=== PATIENT | male | born 1960 | race Caucasian/White ===

== ENCOUNTER 2016-04-18 16:11 | Emergency (ER) | payer OTHER ==
[2016-04-18] MEDS ORDERED: NS 0.9% 1000 ML* 1,000 ML IV SCH (16:30)
[2016-04-18 16:36] LABS: Hematocrit 43 % (42-52); Hemoglobin 14.4 g/dl (14.0-18.0); Mean Corpuscular HGB Conc 34 g/dl (31-36); Mean Corpuscular Hemoglobin 31 pg (27-31); Mean Corpuscular Volume 92 fL (80-94); Mean Platelet Volume 9 um3 (7.4-10.4); Red Blood Count 4.67 10^6/ul (4.0-5.4); Red Cell Distribution Width 14 % (10.5-15)
--- NOTE | 2016-04-18 16:43 | RAD ---
INDICATION: Right-sided weakness COMPARISON: None TECHNIQUE: An AP portable view obtained at 1637 hours is submitted. FINDINGS: Bones/Soft Tissues: There are no acute bony findings. Cardiomediastinal: The cardiomediastinal silhouette is normal. Lungs: There are no infiltrates. Pleura: There are no pleural effusions. Other: None IMPRESSION: NO ACTIVE DISEASE.
--- NOTE | 2016-04-18 16:44 | RAD ---
INDICATION: Weakness COMPARISON: CT brain 03/08/2014 TECHNIQUE: Noncontrast axial source images were acquired from the skull base to the vertex. FINDINGS: Ventricles/sulci: The ventricles and cisterns are normal in size and configuration for age. Brain parenchyma: There is no focal parenchymal finding, evidence of intracranial mass, or intracranial mass effect. Intracranial hemorrhage:None. Extra-axial spaces: There are no abnormal extra axial fluid collections or evidence of extra-axial mass. Calvarium: There is no calvarial fracture or other calvarial abnormality. Scalp: There is no evidence of scalp or extracalvarial soft tissue abnormality. Paranasal sinuses/mastoid: The paranasal sinuses and mastoid air cells are clear. Other: None. IMPRESSION: NEGATIVE EXAMINATION
[2016-04-18 17:00] LABS: Albumin 4.3 g/dL (3.2-5.2); BUN/Creatinine Ratio 17.9 (8-20); C Reactive Protein 2.98 mg/L (< 5.00); Calcium 9.5 mg/dL (8.6-10.3); EGFR Non-African American 60.7 (>60); Globulin 2.4 g/dL (2-4); Magnesium 2.1 mg/dL (1.9-2.7); Total Bilirubin 0.6 mg/dL (0.2-1.0); Total Protein 6.7 g/dL (6.4-8.9)
[2016-04-18] MEDS ORDERED: Iohexol 350* (CONTRAST) 500 ML MDV IV ONE (17:26)
--- NOTE | 2016-04-18 17:29 | PN ---
Progress Note - Progress Note Note: Hospitalist addendum:spoke with Dr. Raines re: pt most likely will need admission, but will await CTA results prior to admission in case pt needed a a transfer to a tertiary care center.
[2016-04-18 17:38] LABS: TSH (Thyroid Stimulating Horm) 2.08 mcIU/mL (0.34-5.60)
--- NOTE | 2016-04-18 18:10 | RAD ---
INDICATION: Right arm and leg weakness. Slurred speech. COMPARISON: CT brain 04/18/2016 TECHNIQUE: Axial source images were acquired with coronal and sagittal reconstructions. CT angiographic technique was utilized with injection of 80 mL Omnipaque 350. FINDINGS: Aortic arch: There are no CT angiogram abnormalities of the arch or the great vessels arising from the arch. Right carotid: The internal carotid artery, carotid bifurcation, extracranial portions of the internal carotid artery, carotid artery at the skull base, carotid siphon, and carotid termination appear widely patent. Left carotid:The internal carotid artery, carotid bifurcation, extracranial portions of the internal carotid artery, carotid artery at the skull base, carotid siphon, and carotid termination appear widely patent. Right middle and anterior cerebral arteries: There are no CT angiographic abnormalities of the middle or anterior cerebral arteries. Left middle and anterior cerebral arteries: There are no CT angiographic abnormalities of the middle or anterior cerebral arteries Right vertebral: The CT angiographic appearance of the vertebral artery is normal. Left vertebral: The CT angiographic appearance of the vertebral artery is normal. Basilar artery: The basilar artery and basilar tip appear normal. Posterior cerebral arteries: The distal distribution of the right and left posterior cerebral arteries is normal. [place] of [place]: The CT angiographic appearance of the [place] of [place] is normal. Source images show no evidence of mass or adenopathy within the neck. There are no focal parenchymal abnormalities or abnormal areas of enhancement. IMPRESSION: NO SIGNIFICANT CT RADIOGRAPHIC ABNORMALITIES. NO SIGNIFICANT STENOSIS, ANEURYSM, OR BRANCH OCCLUSION. CPT II Codes: 3100F [facility]
--- NOTE | 2016-04-18 18:37 | CONSULT ---
Consult Consult: 55 yo RHM w/ HTN, HL, p/w an episode of blacking out while standing at work on Friday. He had no specific prodrome, but found himself staring off at a different part of his desk when he came to; his boss told him he did not look right, and his told him he looked pale when he got home. He also noted dizziness and unsteadiness at times. He felt tired and stayed home and slept most of the day. He and his family think his voice is different, but when asked to clarify suggest it is hoarse. He has no bulbar, language, focal sensorimotor or gait issues. When asked re visual issues he suggests occasional variegated color floaters, not in any specific part of his visual field. He denies antecedent illness but his thinks he may have not eaten or had much fluid estrada yesterday. He carries a diagnosis of TIAs, consisting of 2 episodes of headache, dizziness and disorientation, without any focal complaints. He had an episode in ? 11/04 ( worked up in [facility]; unsure of details but had some type of brain and cardiac imaging. He was in the [facility] ED in 03/06 for dizziness and headache. He thinks he was put on Plavix after these. He suggests chronic imbalance and dizziness that he labels TIA, but denies falls or use of gait assist devices; he works a physically demanding job. Allergies/Meds: NKDA (atenolol a/w dizziness); on coreg, Lipitor 80mg, plavix PMH : HL, HTN, CTS releases, bunionectomy FH: early onset CAD in parents and one sibling; children grown and healthy SH: goes to OR clinic; ex [employer]; works in [employer]; remote tobacco; no etoh or drugs; accompanied in ED by mult family members, incl , son, brother in law ROS: 10 point review negative save as per hpi. general Examination: no apparent distress, no edema, male of stated age; BP 120/ 60 on monitor Neurologic Examination Mental Status: alert, oriented, fund of knowledge normal, concentration and recent and remote memory observationally intact, fluent speech, reactive affect , no neglect. Cranial Nerves: II, III, IV, V, , VII, IX, X, XI and XII intact. Funduscopy deferred. Motor: normal bulk and tone. Power testing is 5/5. He has intermittent subtle right drift without pronation; there is no tremor. Sensory: vibration and touch are intact Reflexes: 2 all extremities. Plantar responses are equivocal to flexor Coordination: finger to nose is accurate but embellished at times on the right Gait: normal casual gait; steady Serologies: LFTs, trop, BNP, CRP, coags, TSH are all normal or negative; bun/cr 22/1.2 (was 0.8 in 03/06), WBC 12 Imaging: - Head CT reviewed and negative (prior 03/06 negative as well) - CTA head and neck reviewed and negative (obtained at [facility] medical team) - Cxr negative; 05/08 cervical spine xray djd Impression: 55 year old presenting with a panoply of poorly localizing symptoms, including floaters, hoarse voice, malaise, a ? (pre) syncopal episode, subjective unsteadiness. He carries a diagnosis of TIA for several remote episodes that sound frankly non focal. His neuro exam is normal save for some poorly reproducible and embellished appearing right hand findings; his [employer] parenchymal and vascular imaging is normal. His labs are notable for mild dehydration and leukocytosis, ie my suspicion would be more for a viral ailment and (pre) syncope than for a [employer] vascular event. He does not require any further neuro workup.
[2016-04-18] MEDS ORDERED: Acetaminophen TAB* 325 MG PO PRN (18:42)
[2016-04-18] MEDS ORDERED: ALPRAZolam TAB* 0.25 MG PO PRN (18:47)
--- NOTE | 2016-04-18 19:06 | ED ---
Sultana Morris Janilya, scribed for Davie Chao MD on 04/18/16 at 1627 . Neurological HPI - HPI Summary HPI Summary: A 55 y/o male [facility] for a gradual onset of constant Sx that occurred 2 days ago and were similar to previous TIA. Pt states he had slurred speech, right-sided weakness, off-balance sensation, dizziness, ROLDAN in frontal and parietal region. His Sx have since subsided, and pt can ambulate. 9 days ago, pt also passed out. Pt is on bloodthinner Plavix. - History of Current Complaint Stated Complaint: NEURO EVAL Hx Obtained From: Patient Onset/Duration: Gradual Onset, Started days ago, Still Present Timing: Constant Onset Severity: Moderate Current Severity: Moderate Seizure Severity: Moderate Headache Location: Frontal, Parietal (Right), Parietal (Left) Character: Weak, Dizzy Aggravating: Nothing Alleviating: Nothing - Allergy/Home Medications Allergies/Adverse Reactions: Allergies Allergy/AdvReac Type Severity Reaction Status Date / Time Atenolol AdvReac Mild Dizziness Verified 03/08/14 13:17 Home Medications: Home Medications ALPRAZolam TAB* [Xanax TAB*] 0.25 mg PO BID PRN 04/18/16 [History Confirmed ] Carvedilol TAB* [Coreg TAB*] 3.125 mg PO BID 04/18/16 [History Confirmed ] Cholecalciferol TAB* [Vitamin D TAB*] 2,000 units PO DAILY 04/18/16 [History Confirmed 04/18/16] Citalopram TAB* [CeleXA TAB*] 20 mg PO DAILY 04/18/16 [History Confirmed ] Cyclobenzaprine (NF) 2.5 mg PO BEDTIME 04/18/16 [History Confirmed 04/18/16] Gabapentin CAP(*) [Neurontin 100 mg CAP(*)] 100 mg PO TID WITH MEALS 04/18/16 [ History Confirmed 04/18/16] Lisinopril TAB* [Prinivil TAB*] 10 mg PO BID 04/18/16 [History Confirmed ] Nitroglycerin TAB 0.4 MG* 0.4 mg SL Q5M PRN 04/18/16 [History Confirmed 04/18/16 ] Pantoprazole TAB (NF) [Protonix TAB (NF)] 40 mg PO QAM 04/18/16 [History Confirmed 04/18/16] Rosuvastatin (NF) [Crestor (NF)] 20 mg PO DAILY 04/18/16 [History Confirmed ] PMH/Surg Hx/FS Hx/Imm Hx - Surgical History Surgery Procedure, Year, and Place: CAD. TIA - Family History Known Family History: Positive: Cardiac Disease - parents and sister, Hypertension, Diabetes - Social History Alcohol Use: Daily Alcohol Amount: 1-2 beer Substance Use Type: Reports: None Smoking Status (MU): Former Smoker Review of Systems Neurological: Other - dizziness, off-balance sensation Positive: Headache, Weakness - right-sided, Syncope, Slurred Speech All Other Systems Reviewed And Are Negative: Yes Physical Exam Triage Information Reviewed: Yes Vital Signs On Initial Exam: Initial Vitals BP 109/63 04/18/16 16:23 Vital Signs Reviewed: Yes Appearance: Positive: Well-Appearing, No Pain Distress Skin: Positive: Warm, Skin Color Reflects Adequate Perfusion, Dry Head/Face: Positive: Normal Head/Face Inspection Eyes: Positive: EOMI, ZAIRA ENT: Positive: Normal ENT inspection Neck: Positive: Supple, Nontender Respiratory/Lung Sounds: Positive: Clear to Auscultation, Breath Sounds Present Cardiovascular: Positive: RRR Abdomen Description: Positive: Nontender, Soft Bowel Sounds: Positive: Present Musculoskeletal: Positive: Other - mild weakness of right arm and right leg. Negative: Normal, Strength/ROM Intact Neurological: Positive: Normal, Sensory/Motor Intact, Alert, Oriented to Person Place, Time, Slurred Speech - slight. Negative: Facial Droop Psychiatric: Positive: Affect/Mood Appropriate Diagnostics - Vital Signs Vital Signs Temp Pulse Resp BP Pulse Ox 04/18/16 16:42 112/56 04/18/16 16:34 70 20 92 04/18/16 16:31 98.6 F 70 18 112/56 94 04/18/16 16:30 74 22 115/60 92 04/18/16 16:24 71 21 93 04/18/16 16:23 109/63 - Laboratory Lab Results: Lab Results 04/18/16 04/18/16 04/18/16 Range/Units 16:25 16:25 16:25 WBC 12.0 H (3.5-10.8) 10^3/ul RBC 4.67 (4.0-5.4) 10^6/ul Hgb 14.4 (14.0-18.0) g/dl Hct 43 (42-52) % MCV 92 (80-94) fL MCH 31 (27-31) pg MCHC 34 (31-36) g/dl RDW 14 (10.5-15) % Plt Count 207 (150-450) 10^3/ul MPV 9 (7.4-10.4) um3 Neut % (Auto) 67.7 (38-83) % Lymph % (Auto) 22.2 L (25-47) % Wells % (Auto) 7.1 (1-9) % Eos % (Auto) 2.3 (0-6) % Baso % (Auto) 0.7 (0-2) % Absolute Neuts (auto) 8.1 H (1.5-7.7) 10^3/ul Absolute Lymphs (auto) 2.7 (1.0-4.8) 10^3/ul Absolute Monos (auto) 0.9 H (0-0.8) 10^3/ul Absolute Eos (auto) 0.3 (0-0.6) 10^3/ul Absolute Basos (auto) 0.1 (0-0.2) 10^3/ul Absolute Nucleated RBC 0 10^3/ul Nucleated RBC % 0 INR (Anticoag Therapy) 0.95 (0.89-1.11) APTT 31.1 (26.0-36.3) seconds Sodium 136 (133-145) mmol/L Potassium 4.0 (3.5-5.0) mmol/L Chloride 105 (101-111) mmol/L Carbon Dioxide 22 (22-32) mmol/L Anion Gap 9 (2-11) mmol/L BUN 22 (6-24) mg/dL Creatinine 1.23 H (0.67-1.17) mg/dL Est GFR ( Amer) 78.0 (>60) Est GFR (Non-Af Amer) 60.7 (>60) BUN/Creatinine Ratio 17.9 (8-20) Glucose 83 (70-100) mg/dL Calcium 9.5 (8.6-10.3) mg/dL Magnesium 2.1 (1.9-2.7) mg/dL Total Bilirubin 0.60 (0.2-1.0) mg/dL AST 18 (13-39) U/L ALT 14 (7-52) U/L Alkaline Phosphatase 78 (34-104) U/L Troponin I 0.00 (<0.04) ng/mL C-Reactive Protein 2.98 (< 5.00) mg/L B-Natriuretic Peptide ( - 100) pg/mL Total Protein 6.7 (6.4-8.9) g/dL Albumin 4.3 (3.2-5.2) g/dL Globulin 2.4 (2-4) g/dL Albumin/Globulin Ratio 1.8 (1-3) TSH 2.08 (0.34-5.60) mcIU/mL 04/18/16 Range/Units 16:25 WBC (3.5-10.8) 10^3/ul RBC (4.0-5.4) 10^6/ul Hgb (14.0-18.0) g/dl Hct (42-52) % MCV (80-94) fL MCH (27-31) pg MCHC (31-36) g/dl RDW (10.5-15) % Plt Count (150-450) 10^3/ul MPV (7.4-10.4) um3 Neut % (Auto) (38-83) % Lymph % (Auto) (25-47) % Wells % (Auto) (1-9) % Eos % (Auto) (0-6) % Baso % (Auto) (0-2) % Absolute Neuts (auto) (1.5-7.7) 10^3/ul Absolute Lymphs (auto) (1.0-4.8) 10^3/ul Absolute Monos (auto) (0-0.8) 10^3/ul Absolute Eos (auto) (0-0.6) 10^3/ul Absolute Basos (auto) (0-0.2) 10^3/ul Absolute Nucleated RBC 10^3/ul Nucleated RBC % INR (Anticoag Therapy) (0.89-1.11) APTT (26.0-36.3) seconds Sodium (133-145) mmol/L Potassium (3.5-5.0) mmol/L Chloride (101-111) mmol/L Carbon Dioxide (22-32) mmol/L Anion Gap (2-11) mmol/L BUN (6-24) mg/dL Creatinine (0.67-1.17) mg/dL Est GFR ( Amer) (>60) Est GFR (Non-Af Amer) (>60) BUN/Creatinine Ratio (8-20) Glucose (70-100) mg/dL Calcium (8.6-10.3) mg/dL Magnesium (1.9-2.7) mg/dL Total Bilirubin (0.2-1.0) mg/dL AST (13-39) U/L ALT (7-52) U/L Alkaline Phosphatase (34-104) U/L Troponin I (<0.04) ng/mL C-Reactive Protein (< 5.00) mg/L B-Natriuretic Peptide 22 ( - 100) pg/mL Total Protein (6.4-8.9) g/dL Albumin (3.2-5.2) g/dL Globulin (2-4) g/dL Albumin/Globulin Ratio (1-3) TSH (0.34-5.60) mcIU/mL Result Diagrams: 04/18/16 16:25 04/18/16 16:25 Lab Statement: Any lab studies that have been ordered have been reviewed, and results considered in the medical decision making process. - Radiology CXR Xray Interpretation: No Acute Changes - IMPRESSION: No active disease Radiology Interpretation Completed By: Radiologist - CT brain CT Interpretation: No Acute Changes - IMPRESSION: Negative examination CT Interpretation Completed By: Radiologist head CTA CT Interpretation: No Acute Changes - IMPRESSION: NO SIGNIFICANT CT RADIOGRAPHIC ABNORMALITIES. NO SIGNIFICANT STENOSIS, ANEURYSM, OR BRANCH OCCLUSION. CT Interpretation Completed By: Radiologist Course/Dx - Course Assessment/Plan: DR LUCIA SAW PATIENT IN ED. SEE HIS DICTATED CONSULTATION. IN FURTHER DISCUSSION WITH THE PATIENT, HIS FAMILY AND THE HOSPITALIST, THE PATIENT WOULD LIKE TO GO TO THE [facility] IN [place]. HE WILL BE DISCHARGE FROM THE ED WITH HIS ED RECORDS IN STABLE CONDITION. - Diagnoses Provider Diagnoses: Weakness - Physician Notifications Discussed Care of Patient With: Dr. Zamora (hospitalist) at 1702: discussed pt care. Dr. Lucia (neurologist) at 1715: agreed to come and evaluate the pt. Discharge - Discharge Plan Condition: Stable Disposition: HOME Patient Education Materials: Weakness (ED) Referrals: Don Holguin MD [Primary Care Provider] - Additional Instructions: FOLLOW UP WITH YOUR DOCTOR. RETURN TO THE EMERGENCY DEPARTMENT FOR ANY WORSENING OF YOUR CONDITION OR QUESTIONS OR CONCERNS. The documentation as recorded by the Sultana johnston Janilya accurately reflects the service I personally performed and the decisions made by me, Davie Chao MD.
[2016-04-18 19:22] VITALS: BP 117/74
[2016-04-18] MEDS ORDERED: Cyclobenzaprine TAB* 10 MG PO SCH (21:00)
[2016-04-18] MEDS ORDERED: Carvedilol TAB* 3.125 MG PO SCH (21:00)
[2016-04-19] MEDS ORDERED: Gabapentin CAP(*) 100 MG PO SCH (08:00)
[2016-04-19] MEDS ORDERED: Atorvastatin* 40 MG TAB PO SCH (09:00)
[2016-04-19] MEDS ORDERED: Citalopram TAB* 20 MG PO SCH (09:00)
== END 2016-04-18 19:24 | disposition home or self-care (01) ==
LOC: ED 16:11
DX: R53.1 Weakness (principal); Z86.73 Personal history of transient ischemic attack (TIA), and cerebral infarction without residual deficits; Z87.891 Personal history of nicotine dependence; Z79.02 Long term (current) use of antithrombotics/antiplatelets; I10 Essential (primary) hypertension
CPT/HCPCS: 36415; 70450; 70496; 70498; 71010; 80053; 83735; 83880; 84443; 84484; 85025; 85610; 85730; 86140; 99284; Q9967

== ENCOUNTER 2018-08-11 13:00 | Emergency (ER) | payer OTHER ==
--- NOTE | 2018-08-11 13:13 | ED ---
Neurological HPI - HPI Summary HPI Summary: This patient is a 57 year old female presenting to [facility] with a chief complaint of - History of Current Complaint Stated Complaint: TIA PER EMS Time Seen by Provider: 08/11/18 13:04 - Allergy/Home Medications Allergies/Adverse Reactions: Allergies Allergy/AdvReac Type Severity Reaction Status Date / Time MS Atenolol [Atenolol] AdvReac Mild Dizziness Verified 03/08/14 13:17 PMH/Surg Hx/FS Hx/Imm Hx Cardiovascular History: Reports: Other Cardiovascular Problems/Disorders - CAD - Surgical History Surgery Procedure, Year, and Place: CAD. TIA - Family History Known Family History: Positive: Cardiac Disease - parents and sister, Hypertension, Diabetes - Social History Alcohol Use: Daily Alcohol Amount: 1-2 beer Substance Use Type: Reports: None Substance Use Comment - Amount & Last Used: last used 2 days ago Smoking Status (MU): Former Smoker Discharge - Discharge Plan Referrals: Don Holguin MD [Primary Care Provider] - - Attestation Statements Document Initiated by Scribe: Yes
[2018-08-11 13:22] LABS: ABS Basophils 0.1 10^3/ul (0-0.2); ABS Eosinophils 0.3 10^3/ul (0-0.6); ABS Lymphocytes 1.9 10^3/ul (1.0-4.8); ABS Monocytes 0.5 10^3/ul (0-0.8); ABS Neutrophils 9.1 10^3/ul (1.5-7.7); Eosinophil % 2.5 %; Hematocrit 42 % (42-52); Hemoglobin 14.1 g/dL (14.0-18.0); Lymphocyte % 15.8 %; Mean Corpuscular HGB Conc 34 g/dL (31-36); Mean Corpuscular Hemoglobin 30 pg (27-31); Mean Corpuscular Volume 90 fL (80-94); Mean Platelet Volume 8.7 fL (7.4-10.4); Platelet Count 231 10^3/uL (150-450); Red Blood Count 4.64 10^6 /uL (4.18-5.48); Red Cell Distribution Width 13 % (10.5-15); White Blood Count 11.9 10^3/uL (3.5-10.8)
[2018-08-11 13:31] LABS: INR 0.94 (0.82-1.09)
--- NOTE | 2018-08-11 14:00 | ED ---
Dizziness - HPI Summary HPI Summary: This patient is a 57 year old M brought in by EMS from [facility] facility presenting to [facility] with a chief complaint of dizziness since 0930 this morning, 08/09/20. Per EMS the patient was turning his head to the right hand side and felt an immediate dizziness spell. The patient had L sided chest pain and was diaphoretic during the work day after the episode occurred. The patient also reported being nauseas and vomiting donuts up after work. The patient then went to the [facility] facility who thought he may have had a possible TIA or acute coronary syndrome. The patient was then directed to [facility] for further evaluation. The patient reports dizziness and chest pain with an associated stabbing pain upon arrival to the ED. The patient also denies any syncopal episode. The patient has a Hx of HTN and HLD per family. - History Of Current Complaint Chief Complaint: EDDizziness Stated Complaint: TIA PER EMS Time Seen by Provider: 08/11/18 13:04 Hx Obtained From: Patient, EMS Onset/Duration: Still Present Timing: Hours - sine 92908/11/18 Severity Initially: Severe Severity Currently: Moderate Character: Dizzy Aggravating Factor(s): Position Change - Rapid movement of the patient's head initiated the episode Alleviating Factor(s): Nothing Associated Signs And Symptoms: Positive: Nausea, Vomiting, Diaphoresis, Chest Pain - L sided, Other: - Negative: syncopl episode - Allergies/Home Medications Allergies/Adverse Reactions: Allergies Allergy/AdvReac Type Severity Reaction Status Date / Time atenolol Allergy Dizziness Verified 08/11/18 14:39 Home Medications: Home Medications Clopidogrel TAB* [Plavix TAB*] 75 mg PO DAILY 08/11/18 [History Confirmed ] Cyclobenzaprine TAB* [Flexeril 10 MG TAB*] 10 mg PO TID PRN 08/11/18 [History Confirmed 08/11/18] Gabapentin CAP(*) [Neurontin 100 mg CAP(*)] 200 mg PO BID 08/11/18 [History Confirmed 08/11/18] Sertraline* [Zoloft*] 150 mg PO DAILY 08/11/18 [History Confirmed 08/11/18] PMH/Surg Hx/FS Hx/Imm Hx Previously Healthy: No Endocrine/Hematology History: Denies: Hx Diabetes Cardiovascular History: Reports: Hx Hypercholesterolemia, Hx Hypertension, Other Cardiovascular Problems/Disorders - CAD - Surgical History Surgery Procedure, Year, and Place: CAD. TIA Infectious Disease History: No Infectious Disease History: Denies: Traveled Outside the [place] in Last 30 Days - Family History Known Family History: Positive: Cardiac Disease - parents and sister, Hypertension, Diabetes - Social History Alcohol Use: None Hx Substance Use: No Substance Use Type: Reports: None Substance Use Comment - Amount & Last Used: last used 2 days ago Hx Tobacco Use: Yes Smoking Status (MU): Former Smoker Review of Systems Positive: Skin Diaphoresis, Other - Dizziness Positive: Chest Pain - L sided Positive: Vomiting, Nausea Negative: Syncope All Other Systems Reviewed And Are Negative: Yes Physical Exam - Summary Physical Exam Summary: VITAL SIGNS: Reviewed. GENERAL: Patient is a well-developed and nourished MALE who is lying comfortable in the stretcher. Patient is not in any acute respiratory distress. HEAD AND FACE: No signs of trauma. No ecchymosis, hematomas or skull depressions. No sinus tenderness. EYES: PERRLA, EOMI x 2, No injected conjunctiva, no nystagmus. EARS: Hearing grossly intact. Ear canals and tympanic membranes are within normal limits. MOUTH: Oropharynx within normal limits. NECK: Supple, trachea is midline, no adenopathy, no JVD, no carotid bruit, no c- spine tenderness, neck with full ROM. CHEST: Symmetric, no tenderness at palpation LUNGS: Clear to auscultation bilaterally. No wheezing or crackles. CVS: Regular rate and rhythm, S1 and S2 present, no murmurs or gallops appreciated. ABDOMEN: Soft, non-tender. No signs of distention. No rebound no guarding, and no masses palpated. Bowel sounds are normal. EXTREMITIES: FROM in all major joints, no edema, no cyanosis or clubbing. NEURO: Alert and oriented x 3. No acute neurological deficits. Speech is normal and follows commands. SKIN: Dry and warm GCS: 15 NIH: 0 Triage Information Reviewed: Yes Vital Signs On Initial Exam: Initial Vitals Temp Pulse Resp BP Pulse Ox 98 F 72 18 132/80 93 08/11/18 13:07 08/11/18 13:07 08/11/18 13:07 08/11/18 13:07 08/11/18 13:07 Vital Signs Reviewed: Yes Diagnostics - Vital Signs Vital Signs Temp Pulse Resp BP Pulse Ox 08/11/18 13:09 98 08/11/18 13:07 98 F 72 18 132/80 93 - Laboratory Lab Results: Lab Results 08/11/18 08/11/18 08/11/18 Range/Units 13:12 13:12 13:12 WBC 11.9 H (3.5-10.8) 10^3/uL RBC 4.64 (4.18-5.48) 10^6 /uL Hgb 14.1 (14.0-18.0) g/dL Hct 42 (42-52) % MCV 90 (80-94) fL MCH 30 (27-31) pg MCHC 34 (31-36) g/dL RDW 13 (10.5-15) % Plt Count 231 (150-450) 10^3/uL MPV 8.7 (7.4-10.4) fL Neut % (Auto) 77.0 % Lymph % (Auto) 15.8 % [place] % (Auto) 4.2 % Eos % (Auto) 2.5 % Baso % (Auto) 0.5 % Absolute Neuts (auto) 9.1 H (1.5-7.7) 10^3/ul Absolute Lymphs (auto) 1.9 (1.0-4.8) 10^3/ul Absolute Monos (auto) 0.5 (0-0.8) 10^3/ul Absolute Eos (auto) 0.3 (0-0.6) 10^3/ul Absolute Basos (auto) 0.1 (0-0.2) 10^3/ul Absolute Nucleated RBC 0.0 10^3/ul Nucleated RBC % 0.0 INR (Anticoag Therapy) 0.94 (0.82-1.09) Sodium Pending Potassium Pending Chloride Pending Carbon Dioxide Pending Anion Gap Pending BUN Pending Creatinine Pending Est GFR ( Amer) Pending Est GFR (Non-Af Amer) Pending BUN/Creatinine Ratio Pending Glucose Pending Lactic Acid (0.5-2.0) mmol/L Calcium Pending Total Bilirubin Pending AST Pending ALT Pending Alkaline Phosphatase Pending Troponin I 0.00 (<0.04) ng/mL Total Protein Pending Albumin Pending Globulin Pending Albumin/Globulin Ratio Pending Triglycerides Pending Cholesterol Pending LDL Cholesterol Pending HDL Cholesterol Pending Serum Alcohol Pending 08/11/18 Range/Units 13:12 WBC (3.5-10.8) 10^3/uL RBC (4.18-5.48) 10^6 /uL Hgb (14.0-18.0) g/dL Hct (42-52) % MCV (80-94) fL MCH (27-31) pg MCHC (31-36) g/dL RDW (10.5-15) % Plt Count (150-450) 10^3/uL MPV (7.4-10.4) fL Neut % (Auto) % Lymph % (Auto) % [place] % (Auto) % Eos % (Auto) % Baso % (Auto) % Absolute Neuts (auto) (1.5-7.7) 10^3/ul Absolute Lymphs (auto) (1.0-4.8) 10^3/ul Absolute Monos (auto) (0-0.8) 10^3/ul Absolute Eos (auto) (0-0.6) 10^3/ul Absolute Basos (auto) (0-0.2) 10^3/ul Absolute Nucleated RBC 10^3/ul Nucleated RBC % INR (Anticoag Therapy) (0.82-1.09) Sodium Potassium Chloride Carbon Dioxide Anion Gap BUN Creatinine Est GFR ( Amer) Est GFR (Non-Af Amer) BUN/Creatinine Ratio Glucose Lactic Acid 1.1 (0.5-2.0) mmol/L Calcium Total Bilirubin AST ALT Alkaline Phosphatase Troponin I (<0.04) ng/mL Total Protein Albumin Globulin Albumin/Globulin Ratio Triglycerides Cholesterol LDL Cholesterol HDL Cholesterol Serum Alcohol Result Diagrams: 08/11/18 13:12 08/11/18 13:12 Lab Statement: Any lab studies that have been ordered have been reviewed, and results considered in the medical decision making process. - Radiology CXR Radiology Interpretation Completed By: Radiologist Summary of Radiographic Findings: No active cardiopulmonary disease is noted. ED Physician has reviewed this report. - CT Brain CT CT Interpretation Completed By: Radiologist Summary of CT Findings: NO EVIDENCE FOR ACUTE INTRACRANIAL ABNORMALITY. ED Physician has reviewed this report. - EKG 1352 Cardiac Rate: NL - 68 BPM EKG Rhythm: Sinus Rhythm ST Segment: Normal Summary of EKG Findings: Normal sinus rhythm at [address] elevation and normal axis. National Institutes Of Health - NIH Scale Level of Consciousness: Alert/Keenly Responsive Ask Patient the Month and His/Her Age: Both Correct Ask Pt to Open/Close Eyes and Fudge Candy Maker/Release Non-Paretic Hand: Both Correctly Best Gaze (Only Horizontal Eye Movement): Normal Visual Field Testing: No Visual Loss Facial Paresis-Pt to Smile & Close Eyes or Grimace Symmetry: Normal/Symmetrical Motor Function - Right Arm: No Drift-Holds 10 Seconds Motor Function - Left Arm: No Drift-Holds 10 Seconds Motor Function - Right Leg: No Drift-Holds 10 Seconds Motor Function - Left Leg: No Drift-Holds 10 Seconds Limb Ataxia-Must be out of Proportion to Weakness Present: Absent Sensory (Use Pinprick to Test Arms/Legs/Trunk/Face): Normal Best Language (Describe Picture, Name Items): No Aphasia Dysarthria (Read Several Words): Normal Extinction and Inattention: No Abnormality Total Score: 0 Re-Evaluation - Re-Evaluation First Eval Re-Evaluation Time: 17:56 Comment: Patient was informed about the discharge plan and is agreeable. Dizzy Course/Dx - Course Assessment/Plan: This patient is a 57-year-old male who presents to the emergency department after he was transferred from the [facility] clinic with a chief complaint of having dizziness and chest pain. The patient has past medical history significant for dyslipidemia, hypertension, inguinal hernia, TIA, cervical radiculopathy, and MRSA. Blood test results without any significant abnormality except for white blood cell count 11.9, glucose 122, urinalysis is negative for UTI. Troponin 0.00 therefore have no suspicion for an acute coronary syndrome. EKG shows a normal sinus rhythm without any ST elevations. Brain CT impression no evidence for acute intracranial abnormality. Chest x- ray impression: No evidence for active cardiopulmonary disease. After 4 hours the second troponin is also 0.00. The patient is asymptomatic at this time. We ambulated the patient and he has a good steady walk. The patient does have any ataxia. Therefore I believe that the patient had an episode of vertigo which he already has resolved. The patient is not symptomatic. At this point we have ruled out an acute coronary syndrome with 2 troponins apart and an EKG and since the patient is symptoms free he will be discharged home with follow- up with primary care physician. Also he is to follow-up with his neurologist for further workup and management. He was recommended to return to the emergency room immediately if he develops any other weakness, dizziness, slurred speech, facial droop or any other symptom. The patient understands and agrees. The family members who are with him also agrees and understands. Patient is hemodynamically stable alert and oriented 3. - Diagnoses Differential Diagnosis/HQI/PQRI: Benign Paroxysmal Positional Vertigo, Coronary Artery Disease, CVA, Dysrhythmia, Hyperventilation, Labyrinthitis, Meniere's Disease, Myocardial Infarction, Transient Ischemic Attack, Vasovagal Reaction Provider Diagnoses: Vertigo, Atypical chest pain Discharge - Sign-Out/Discharge Documenting (check all that apply): Patient Departure - discharge Patient Received Moderate/Deep Sedation with Procedure: No - Discharge Plan Condition: Stable Disposition: HOME Patient Education Materials: Chest Pain (ED), Vertigo (ED) Referrals: Don Holguin MD [Primary Care Provider] - - Billing Disposition and Condition Condition: STABLE Disposition: Home - Attestation Statements Document Initiated by Gloryibe: Yes Documenting Scribe: Kristian Montes Provider For Whom Nandoe is Documenting (Include Credential): Camden Collier MD Scribe Attestation: Kristian Morris, scribed for Camden Collier MD on 08/13/18 at 1146. Scribe Documentation Reviewed: Yes Provider Attestation: The documentation as recorded by the gloryibe, Kristian Montes accurately reflects the service I personally performed and the decisions made by , Camden Collier MD Status of Scribe Document: Viewed
[2018-08-11 14:01] LABS: ALT 18 U/L (7-52); AST 19 U/L (13-39); Albumin 4.5 g/dL (3.2-5.2); Albumin/Globulin Ratio 1.8 (1-3); Alkaline Phosphatase 92 U/L (34-104); Anion Gap 6 mmol/L (2-11); BUN/Creatinine Ratio 20.8 (8-20); Blood Urea Nitrogen 20 mg/dL (6-24); CO2 Carbon Dioxide 25 mmol/L (22-32); Chloride 109 mmol/L (101-111); Cholesterol 172 mg/dL; EGFR Non-African American 80.2 (>60); Globulin 2.5 g/dL (2-4); Glucose 122 mg/dL (70-100); HDL Cholesterol 45.8 mg/dL; LDL Cholesterol 105 mg/dL; Potassium 4.4 mmol/L (3.5-5.0); Sodium 140 mmol/L (135-145); Triglycerides 107 mg/dL
[2018-08-11 14:16] LABS: Urine Appearance Clear; Urine Bacteria Absent (Absent); Urine Bilirubin Negative (Negative); Urine Blood 1+ (Negative); Urine Color Yellow; Urine Glucose Negative (Negative); Urine Ketones Negative (Negative); Urine Nitrite Negative (Negative); Urine Protein Negative (Negative); Urine Red Blood Cell 1+(3-5/hpf) (Absent); Urine Specific Gravity 1.019 (1.010-1.030); Urine Urobilinogen Negative (Negative); Urine White Blood Cell Trace(0-5/hpf) (Absent)
[2018-08-11 14:25] LABS: Alcohol < 10 mg/dL (<10)
[2018-08-11 18:09] VITALS: BP 136/87
== END 2018-08-11 18:09 | disposition home or self-care (01) ==
LOC: ED 13:00
DX: R42 Dizziness and giddiness (principal); R07.89 Other chest pain; R11.2 Nausea with vomiting, unspecified; R61 Generalized hyperhidrosis; Z88.8 Allergy status to other drugs, medicaments and biological substances; Z87.891 Personal history of nicotine dependence
CPT/HCPCS: 36415; 70450; 71046; 80053; 80061; 80320; 81003; 81015; 83605; 84484; 85025; 85610; 87086; 93005; 99284; G0480